=== PATIENT | male | born 1985 | race Caucasian/White ===

== ENCOUNTER 2020-06-08 12:28 | Emergency (ER) | payer SELFPAY ==
[2020-06-08 12:29] VITALS: BP 136/91; PULSE 78; RESP 18; TEMP 34.9; O2SAT 97; BMI 30.8
[2020-06-08 15:31] VITALS: BP 116/94; PULSE 72; RESP 16; O2SAT 95
--- NOTE | 2020-06-08 15:45 | CT_ITS ---
STUDY: CT ABDOMEN AND PELVIS WITHOUT CONTRAST REASON FOR EXAM: Male, 35 years old. Kidney Stone/pain RADIATION DOSAGE (If Supplied By Facility): CTDIvol = ( 15.94 ) mGy, DLP = ( 870.84 ) mGycm TECHNIQUE: Transaxial images were obtained from the dome of the diaphragm to the symphysis pubis without oral contrast, and without intravenous contrast. Sagittal and coronal images were reconstructed. Individualized dose optimization techniques were used for this CT. COMPARISON: None. FINDINGS: The visualized lung bases are unremarkable. The visualized portions of the heart are within normal limits. Normal liver. Multiple small to moderate gallstones in the nondistended gallbladder with no wall thickening or pericholecystic fluid. Normal spleen. Normal pancreas. Normal bilateral adrenal glands. Mild hydronephrosis of the right kidney secondary to a 4.8 mm right ureteral stone at the level of the iliac vessel crossing. The ureter thereafter is nondistended with no other ureteral stones. No other nonobstructing stones of the right kidney. Normal left kidney. Normal visualized stomach. Normal small intestine. Normal colon. The appendix is visualized and appears normal. Normal abdominal aorta. Normal inferior vena cava. Normal retroperitoneum. Normal urinary bladder. Bilateral small fatty inguinal hernias. Normal osseous structures. CT/Abdomen/Pelvis without Cont IMPRESSION: Mild hydronephrosis of the right kidney secondary to a 4.8 mm right ureteral stone at the level of the iliac vessel crossing. Uncomplicated cholelithiasis. Bilateral small fatty inguinal hernias. Electronically Signed: Milagros Wadsworth MD at 16:39 EDT , Service support ,
[2020-06-08] MEDS: Ketorolac 30 MG/ML Syringe IV (15:57)
[2020-06-08] MEDS: Ondansetron 4 MG/2 ML Vial IV (15:57)
[2020-06-08] MEDS: 0.9% Normal Saline 1,000 ML 250 ML IV (15:58)
[2020-06-08 16:00] LABS: Absolute Lymphocyte Count 1.18 X10^3/uL (0.83-4.51); Absolute Neutrophil Count 7.7 X10^3/uL (2.0-7.7); Basophil# 0.03 X10^3/uL; Basophil% 0.3 % (0-1); Eosinophil# 0.06 X10^3/uL; Eosinophils% 0.6 % (0-5); Hematocrit 47.4 % (40-54); Hemoglobin 15.5 g/dL (13.0-16.5); Lymphocyte # 1.18 X10^3/ul (0.83-4.51); Lymphocyte % 12.5 % (19-41); Mean Corp Hgb Conc 32.7 g/dL (32-36); Mean Corpuscular Hgb 29.1 pg (27.0-32.0); Mean Corpuscular Volume 89.1 fL (80-94); Mean Platelet Vol. 10.4 fl (6.2-12.0); Monocyte# 0.43 X10^3/uL; Monocyte% 4.6 % (0-10); NRBC Flagged by Analyzer 0 % (0-5); Neutrophil # 7.69 X10^3/uL (2.7-7.7); Neutrophil % 81.8 % (47-70); Platelet Count 230 K/mm3 (150-450); RBC Distribution Width CV 11.9 % (11.6-14.6); RBC Distribution Width SD 38.5 fl (35.1-43.9); Red Blood Count 5.32 M/mm3 (4.6-6.2); White Blood Count 9.4 K/mm3 (4.4-11.0)
--- NOTE | 2020-06-08 16:02 | EDS_ITS ---
HPI History of Present Illness Chief Complaint: Flank Pain Onset/Context/Timing Onset: Today Context: Sudden Onset Timing: Continuous Current Severity: Moderate Maximum Severity: Severe Narrative Narrative: The patient is a 35-year-old male with medical history significant for prior kidney stone who presents to the emergency department for right flank pain into his right lower quadrant. He states it started about 10 AM this morning. He states it is not fully gone away. He states he will get worse in waves. He said 2 episodes of emesis. He has had kidney stone in the past but is never required lithotripsy. He denies any fevers or chills. Prior similar symptoms: Yes Recent Illness/Hospitalization: No PFSH PFSH no medical history Home Medications ondansetron 4 mg PO Q8H PRN PRN #10 tab 06/08/20 [Rx Last Taken Unknown] oxycodone-acetaminophen 1 tab PO Q6H PRN PRN 3 Days #12 tablet 06/08/20 [Rx Last Taken Unknown] tamsulosin 0.4 mg PO DAILY #7 capsule 06/08/20 [Rx Last Taken Unknown] Allergy/AdvReac Type Severity Reaction Status Date / Time No Known Allergies Allergy Verified 06/08/20 12:31 no significant family history no surgical history Social History Smoking Status: Never smoker ROS ROS ED Constitutional Constitutional ED: Denies chills or fever(s) Eyes Eyes: Denies blurry vision or change in vision ENT ENT ED: Denies ear pain or sore throat Cardiovascular Cardiovascular: Denies chest pain or palpitations Respiratory/Chest Respiratory/Chest: Denies cough, dyspnea or dyspnea on exertion Gastrointestinal Gastrointestinal: Reports abdominal pain, nausea and vomiting Genitourinary Genitourinary ED: Denies dysuria or urinary frequency Musculoskeletal Musculoskeletal: Denies arthralgias or myalgias Integumentary Denies rash Neurologic Neurologic: Denies headache(s) or paresthesias Psychiatric Psychiatric: Denies anxiety or depression Endocrine Endocrinology: Denies polydipsia or polyuria Allergic/Immunologic Allergic/Immunologic ED: Denies urticaria EXAM Physical Exam Const Vital Signs: 06/08/20 12:29 06/08/20 15:31 06/08/20 15:32 Temperature 94.9 F L Temperature Source Temporal Pulse Rate 78 72 Respiratory Rate 18 16 Respiratory Effort Normal Respiratory Pattern Normal Blood Pressure 136/91 H 116/94 H Blood Pressure Mean 106 101 Pulse Ox 97 95 Oxygen Delivery Method Room Air Positive well nourished and well developed General Appearance ED: well developed HEENT Reports normocephalic, head/scalp atraumatic and moist mucous membranes Eyes PERRL and EOMs intact bilaterally Neck no lymphadenopathy and supple General: Negative for tenderness Chest Wall inspection of chest normal Resp normal respiratory effort and clear to auscultation bilaterally Cardio regular rate, regular rhythm and no murmurs GI normal to inspection, nondistended, normoactive bowel sounds Palpation: Negative for tender, guarding or rebound tenderness present Back/Spine no CVA tenderness Cervical Spine: Negative for cervical spine tenderness Thoracic Spine / Upper Back: Negative for thoracic spinal tenderness Extremity normal to inspection General Extremety ED: Negative for tenderness Neuro oriented x3 and CN's II-XII intact bilaterally Neuro Narrative: No focal deficits appreciated. Sensorium / Orientation: alert Psych mental status grossly normal Skin no rashes or lesions noted, no wounds and skin turgor normal MDM MDM Lab Data Labs: Laboratory Results - last 24 hr 06/08/20 06/08/20 06/08/20 15:25 15:45 16:45 WBC 9.4 RBC 5.32 Hgb 15.5 Hct 47.4 MCV 89.1 MCH 29.1 MCHC 32.7 RDW Std Deviation 38.5 RDW Coeff of Marguerite 11.9 Plt Count 230 MPV 10.4 Immature Gran % (Auto) 0.200 Neut % (Auto) 81.8 H Lymph % (Auto) 12.5 L [place] % (Auto) 4.6 Eos % (Auto) 0.6 Baso % (Auto) 0.3 Absolute Neuts (auto) 7.7 Absolute Lymphs (auto) 1.18 Nucleated RBC % 0 Sodium 140 Potassium 4.6 Chloride 109 H Carbon Dioxide 28.0 Anion Gap 3 L BUN 17 Creatinine 0.91 Estim Creat Clear Calc 116.99 Est GFR (MDRD) Af Amer 122 Est GFR (MDRD) Non-Af 101 BUN/Creatinine Ratio 18.7 Glucose 103 Calcium 8.9 Urine Color Yellow Urine Clarity Sl. Cloudy Urine pH 5.0 Ur Specific [place] 1.025 U Specif Grav (Refrac) Urine Protein 30 H Urine Glucose (UA) Normal Urine Ketones 5 H Urine Occult Blood 250 H Urine Nitrite Negative Urine Bilirubin Negative Urine Urobilinogen Normal Ur Leukocyte Esterase 25 H Urine RBC Urine WBC Ur Squamous Epith Cells Ur Transition Epith Cell Ur Renal Epithelial Cell Calcium Oxalate Crystal Uric Acid Crystals Triple Phos Crystals Other Crystals Amorphous Sediment Urine Bacteria Hyaline Casts Fine Granular Casts Coarse Granular Casts Waxy Casts RBC Casts WBC Casts Urine Mucus Urine Trichomonas Urine Yeast 06/08/20 16:45 WBC RBC Hgb Hct MCV MCH MCHC RDW Std Deviation RDW Coeff of Marguerite Plt Count MPV Immature Gran % (Auto) Neut % (Auto) Lymph % (Auto) [place] % (Auto) Eos % (Auto) Baso % (Auto) Absolute Neuts (auto) Absolute Lymphs (auto) Nucleated RBC % Sodium Potassium Chloride Carbon Dioxide Anion Gap BUN Creatinine Estim Creat Clear Calc Est GFR (MDRD) Af Amer Est GFR (MDRD) Non-Af BUN/Creatinine Ratio Glucose Calcium Urine Color Cancelled Urine Clarity Cancelled Urine pH Cancelled Ur Specific [place] Cancelled U Specif Grav (Refrac) Cancelled Urine Protein Cancelled Urine Glucose (UA) Cancelled Urine Ketones Cancelled Urine Occult Blood Cancelled Urine Nitrite Cancelled Urine Bilirubin Cancelled Urine Urobilinogen Cancelled Ur Leukocyte Esterase Cancelled Urine RBC Cancelled Urine WBC Cancelled Ur Squamous Epith Cells Cancelled Ur Transition Epith Cell Cancelled Ur Renal Epithelial Cell Cancelled Calcium Oxalate Crystal Cancelled Uric Acid Crystals Cancelled Triple Phos Crystals Cancelled Other Crystals Cancelled Amorphous Sediment Cancelled Urine Bacteria Cancelled Hyaline Casts Cancelled Fine Granular Casts Cancelled Coarse Granular Casts Cancelled Waxy Casts Cancelled RBC Casts Cancelled WBC Casts Cancelled Urine Mucus Cancelled Urine Trichomonas Cancelled Urine Yeast Cancelled Radiography Diagnostic Testing: Radiology Impression Abdomen/Pelvis CT 06/08/20 15:45 IMPRESSION: Mild hydronephrosis of the right kidney secondary to a 4.8 mm right ureteral stone at the level of the iliac vessel crossing. Uncomplicated cholelithiasis. Bilateral small fatty inguinal hernias. Electronically Signed: Milagros Wadsworth MD at 16:39 EDT , Service support , Treatment and Re-Evaluation Comments:: Patient presents with right-sided flank pain. He does have history of kidney stone. Patient was given Toradol and Zofran with some improvement. He was given morphine with resolution. His CT does demonstrate a 4.8 mm stone with mild hydronephrosis. His urine does not show evidence of infection. Now that his pain is controlled, I do feel it is safe for outpatient therapy. I will prescribe him a short course of analgesics, antiemetics, and Flomax. He will be given outpatient urology follow-up. Discharge Plan Triage Chief Complaint: Flank Pain ED Provider: Kobe Lowry Dx/Rx/DC Orders Instructions: ED Kidney Stone w/ Colic Prescriptions: New oxycodone-acetaminophen [oxycodone-acetaminophen] 1 TABLET tablet 1 tab PO Q6H PRN PRN (Reason: Pain) 3 Days Qty: 12 RF: 0 tamsulosin [tamsulosin] 0.4 MG capsule 0.4 mg PO DAILY Qty: 7 RF: 0 ondansetron 4 mg tablet,disintegrating 4 mg PO Q8H PRN PRN (Reason: Nausea) Qty: 10 RF: 0 Primary Care Provider: Care Physician,No Primary Referrals: Jordin Hagen MD [STAFF PHYSICIAN] - 2 Days Kobe Lowry MD [Emergency Provider] - Care Physician,No Primary [Primary Care Provider] -
[2020-06-08 16:53] LABS: Anion Gap 3 (5-15); BUN 17 mg/dL (7-18); BUN/Creat Ratio 18.7 RATIO (10-20); Calcium,Total 8.9 mg/dL (8.5-10.1); Chloride 109 mmol/L (98-107); Creatinine, Serum 0.91 mg/dL (0.70-1.30); EST Glomerular Filtration Rate 101 mL/min (>60); Est Glom Filt Rate - Afr Amer 122 mL/min (>60); Estimated Creatinine Clearance 116.99 ml/min; Glucose 103 mg/dL (74-106); Potassium 4.6 mmol/L (3.5-5.1); Sodium Level 140 mmol/L (136-145)
[2020-06-08 16:54] LABS: Bacteria 0 SEEN /hpf (None Seen); Squamous Epithelial Cells - UA 0 SEEN /hpf (0-5)
[2020-06-08 17:04] LABS: Color, Urine Yellow (Yellow); Glucose, Dipstick Normal (Normal); Ketone-Dipstick 5 mg/dl (Negative); Leukocyte Esterase-Dipstick 25 /ul (Negative); Nitrite-Dipstick Negative (Negative); Occult Blood-Urine 250 /ul (Negative); Protein-Dipstick 30 mg/dl (Negative); Specific Gravity, Urine 1.025 (1.002-1.030); Urine Bilirubin Dipstick Negative (Negative); Urine Clarity Sl. Cloudy (Clear); Urine Urobilinogen Normal (Normal)
[2020-06-08 17:14] LABS: Red Blood Cells-Urine 25-50 SEEN /hpf (0-5)
[2020-06-08 17:15] LABS: White Blood Cells 0-5 SEEN /hpf (0-5); Yeast-Urine RARE /hpf (None Seen)
[2020-06-08 17:16] LABS: Mucous, Urine 2+ /hpf (<or=2+)
== END 2020-06-08 18:41 | disposition home or self-care (01) ==
PROVIDERS: Emergency Provider Emergency Medicine
DX: N13.2 Hydronephrosis with renal and ureteral calculous obstruction (principal); Z87.442 Personal history of urinary calculi; K80.20 Calculus of gallbladder without cholecystitis without obstruction; K40.20 Bilateral inguinal hernia, without obstruction or gangrene, not specified as recurrent
CPT/HCPCS: 74176; 80048; 81001; 85025; 99283; J7030; A4216; J2405

== ENCOUNTER 2021-06-23 10:33 | Emergency (ER) | payer BC, SELFPAY ==
[2021-06-23 10:34] VITALS: BP 142/89; PULSE 102; RESP 14; TEMP 37.7; O2SAT 92; BMI 31.3
--- NOTE | 2021-06-23 10:52 | RAD_ITS ---
STUDY: X-RAY CHEST REASON FOR EXAM: Male, 36 years old. cough TECHNIQUE: Single AP view of the chest COMPARISON: None. FINDINGS: The lungs are clear and expanded. There is no demonstrated pleural abnormality. Normal size heart. Normal mediastinum and ana lilia. Normal visualized pulmonary arteries. Normal visualized aortic arch and descending thoracic aorta. Normal visualized thoracic spine. Normal visualized ribs, clavicles, and shoulders. There is no demonstrated abnormality of the visualized soft tissue structures of the upper abdomen. RAD/Chest 1 View (Portable) IMPRESSION: Normal x-ray examination of the chest. Electronically Signed: Yrn Garcia MD at 11:43 EDT ,
--- NOTE | 2021-06-23 10:53 | EX.ED.DYSGE1 ---
HPI History of Present Illness Chief Complaint: General Illness Detail of Chief Complaint: Headache, body aches, cough Informant: patient Narrative Narrative: Patient presents to the emergency department with multiple complaints. Patient states he developed a headache initially 2 days ago. Patient also has a cough that at times is bringing up some phlegm. Patient states he is coughing so much that his throat has become sore. He complains of diffuse body aches. Has had nausea but no vomiting. He denies diarrhea. Patient states he has been drinking water but urinating less than usual. He has had the COVID-vaccine that was about a year ago but no booster. Patient denies exposures to COVID. He is not had the flu vaccine. Patient otherwise has no medical history. Prior similar symptoms: No PFSH PFSH Home Medications oseltamivir [Tamiflu] 75 mg PO BID 5 Days #10 cap 06/23/21 [Rx Last Taken Unknown] Allergy/AdvReac Type Severity Reaction Status Date / Time No Known Allergies Allergy Verified 06/23/21 10:34 Social History Smoking Status: Never smoker ROS ROS ED Constitutional Constitutional ED: Reports systems reviewed and no addt'l complaints, except as documented; Denies body ache(s), change in weight or chills Eyes Eyes: Denies acute decrease in peripheral vision, change in vision, double vision or loss of vision ENT ENT ED: Reports none and sore throat; Denies ear pain, lip swelling, loss taste/smell, neck pain or otalgia Cardiovascular Cardiovascular: Reports none; Denies abdominal pain, chest pain with activity, leg edema, lightheadedness, palpitations, rapid heart rate or syncope Respiratory/Chest Respiratory/Chest: Reports none, cough and sputum; Denies change in mental status, dry cough, dyspnea, hemoptysis, shortness of breath at rest or shortness of breath with exertion Gastrointestinal Gastrointestinal: Reports none and nausea; Denies abdominal pain, change in stool character, diarrhea, hematemesis, hematochezia, melena, rectal bleeding or vomiting Genitourinary Genitourinary ED: Reports none; Denies abdominal discomfort, anuria, dysuria, genital pain or polyuria Musculoskeletal Musculoskeletal: Reports none, back pain and myalgias; Denies arthralgias, difficulty walking, extremity pain or muscle weakness Integumentary Reports none; Denies abscess or rash Neurologic Neurologic: Reports none; Denies abnormal gait, confusion, focal weakness, frequent falls, headache(s), loss of vision, numbness, paresthesias, radicular pain, vertigo or weakness Psychiatric Psychiatric: Reports systems reviewed and no addt'l complaints, except as documented and none; Denies behavioral changes, confusion, difficulty concentrating, hallucinations, suicidal ideation, tactile hallucinations or visual hallucinations Endocrine Endocrinology: Denies none, cold intolerance, excessive sweating, fatigue or heat intolerance Hematologic/Lymphatic Hematologic/Lymphatic: Reports none; Denies anemia, easy bleeding or easy bruising Allergic/Immunologic Allergic/Immunologic ED: Denies as per HPI, none, lip swelling, mouth swelling, throat swelling, tongue swelling or hives EXAM Physical Exam Const Vital Signs: 06/23/21 10:34 06/23/21 11:12 Temperature 99.8 F H Temperature Source Temporal Pulse Rate 102 H Respiratory Rate 14 Respiratory Effort Normal Non-Labored Respiratory Pattern Normal Blood Pressure 142/89 H Blood Pressure Mean 106 Pulse Ox 92 Oxygen Delivery Method Room Air Positive well nourished and well developed General Appearance ED: well developed and NAD HEENT Reports TM's clear and moist mucous membranes normocephalic and atraumatic; Negative for trauma or tenderness Tympanic Membrane ED: Yes TM's clear Eyes PERRL and EOMs intact bilaterally General Eye ED: Negative for pale conjunctiva or scleral icterus Neck no lymphadenopathy, supple and no JVD General: Negative for tenderness Chest Wall inspection of chest normal and palpation of chest normal Chest: Negative for tenderness Resp normal respiratory effort and clear to auscultation bilaterally Effort and Inspection: Negative for respiratory distress or pain with movement Auscultation: Negative for rhonchi, wheezes or diminished lung sounds Cardio regular rate, regular rhythm, S1 normal heart sound, S2 normal heart sound and no murmurs Peripheral Pulses: pulses 2+ throughout GI normal to inspection, nondistended, normoactive bowel sounds, soft to palpation, non-tender, non-distended and no masses Back/Spine no CVA tenderness and no thoracic nor lumbar tenderness Extremity normal to inspection General Extremety ED: Negative for edema General Extremity: Negative for edema Neuro oriented x3, CN's II-XII intact bilaterally, no sensory deficits noted and gait normal Sensorium / Orientation: awake, alert, oriented to person, oriented to place and oriented to time Motor Exam: strength 5/5 throughout and strength abnormal Psych mental status grossly normal Skin no rashes or lesions noted and no wounds MDM MDM MDM Narrative Medical decision making narrative: IV line established on arrival. Patient was given a liter normal saline fluid bolus. Patient tested positive for COVID-19 as well as influenza A. Elevated D-dimer therefore CTA was obtained which was negative for PE or infiltrates. Discussed treatment options with patient he would like to proceed with Tamiflu. I do not feel any further treatment indicated for his COVID infection. He did ambulate in the department his O2 remained above 97% on room air. Patient advised to return if increasing shortness of breath or condition should worsen anyway. Lab Data Attestation: I reviewed the patient's lab results. Labs: Laboratory Results - last 24 hr 06/23/21 06/23/21 06/23/21 11:00 11:00 11:00 WBC 7.5 RBC 4.76 Hgb 14.3 Hct 43.4 MCV 91.2 MCH 30.0 MCHC 32.9 RDW Std Deviation 39.9 RDW Coeff of Marguerite 11.9 Plt Count 179 MPV 10.0 Immature Gran % (Auto) 0.300 Neut % (Auto) 78.6 H Lymph % (Auto) 7.6 L [place] % (Auto) 12.3 H Eos % (Auto) 0.8 Baso % (Auto) 0.4 Absolute Neuts (auto) 5.9 Absolute Lymphs (auto) 0.57 L Nucleated RBC % 0 D-Dimer Quant (PE/DVT) 0.60 H* Sodium 140 Potassium 3.6 Chloride 109 H Carbon Dioxide 25.0 Anion Gap 6 BUN 15 Creatinine 1.07 Estim Creat Clear Calc 98.55 Est GFR (MDRD) Af Amer 101 Est GFR (MDRD) Non-Af 83 BUN/Creatinine Ratio 14.0 Glucose 142 H Calcium 8.3 L Radiography Chest X-Ray - ED: 1 View Diagnostic Testing: Clinical Impression(s) from Imaging Studies Chest X-Ray 06/23/21 10:52 IMPRESSION: Normal x-ray examination of the chest. Electronically Signed: Yrn Garcia MD at 11:43 EDT Reading Location ID and State: [address] [place] [address] Tel , Service support , Chest CTA 06/23/21 11:29 IMPRESSION: Normal CTA chest examination, without a demonstrated pulmonary embolism or arterial dissection. Electronically Signed: Ra Marley MD at 13:01 EDT , 1 view chest x-ray obtained interpreted by myself no acute disease process. Radiology in agreement. Discharge Plan Triage Chief Complaint: General Illness ED Provider: Taras Domingo Dx/Rx/DC Orders Clinical Impression: Influenza A, COVID-19 Instructions: ED Influenza (Adult), Caring for Someone Who Has COVID-19 Prescriptions: New oseltamivir [Tamiflu] 75 mg capsule 75 mg PO BID 5 Days Qty: 10 RF: 0 Primary Care Provider: Care Physician,No Primary Referrals: Jose Felix MD [STAFF PHYSICIAN] - 5-7 Days Care Physician,No Primary [Primary Care Provider] - Disposition Disposition: Home, Self Care
[2021-06-23] MEDS: 0.9% Normal Saline 1,000 ML 1000 ML IV (11:06)
[2021-06-23 11:12] LABS: Absolute Lymphocyte Count 0.57 X10^3/uL (0.83-4.51); Absolute Neutrophil Count 5.9 X10^3/uL (2.0-7.7); Basophil# 0.03 X10^3/uL; Basophil% 0.4 % (0-1); Eosinophil# 0.06 X10^3/uL; Eosinophils% 0.8 % (0-5); Hematocrit 43.4 % (40-54); Hemoglobin 14.3 g/dL (13.0-16.5); Lymphocyte # 0.57 X10^3/ul (0.83-4.51); Lymphocyte % 7.6 % (19-41); Mean Corp Hgb Conc 32.9 g/dL (32-36); Mean Corpuscular Volume 91.2 fL (80-94); Monocyte# 0.92 X10^3/uL; Monocyte% 12.3 % (0-10); NRBC Flagged by Analyzer 0 % (0-5); Neutrophil # 5.91 X10^3/uL (2.7-7.7); Neutrophil % 78.6 % (47-70); POSITIVE DIFFERENTIAL YES; Platelet Count 179 K/mm3 (150-450); RBC Distribution Width CV 11.9 % (11.6-14.6); RBC Distribution Width SD 39.9 fl (35.1-43.9); Red Blood Count 4.76 M/mm3 (4.6-6.2); White Blood Count 7.5 K/mm3 (4.4-11.0)
[2021-06-23 11:13] LABS: Differential Indicated SCAN CRITERIA MET
[2021-06-23 11:25] LABS: Anion Gap 6 (5-15); BUN 15 mg/dL (7-18); Calcium,Total 8.3 mg/dL (8.5-10.1); Chloride 109 mmol/L (98-107); Creatinine, Serum 1.07 mg/dL (0.70-1.30); EST Glomerular Filtration Rate 83 mL/min (>60); Est Glom Filt Rate - Afr Amer 101 mL/min (>60); Estimated Creatinine Clearance 98.55 ml/min; Glucose 142 mg/dL (74-106); Potassium 3.6 mmol/L (3.5-5.1); Sodium Level 140 mmol/L (136-145)
--- NOTE | 2021-06-23 11:29 | CT_ITS ---
STUDY: CTA CHEST REASON FOR EXAM: Male, 36 years old. dyspnea, elevated d-dimer RADIATION DOSAGE (If Supplied By Facility): CTDIvol = ( 12.26 ) mGy, DLP = ( 455.57 ) mGycm TECHNIQUE: The examination was performed with the intravenous administration of IV 100mL [id number]-370. Post-processing of the angiographic images was performed, with multiplanar reformation and 3D reconstruction. Individualized dose optimization techniques were used for this CT. COMPARISON: Chest x-ray earlier today FINDINGS: Normal enhancement of the main pulmonary artery and right and left pulmonary arteries. Normal enhancement of the bilateral peripheral pulmonary arteries. There is no demonstrated pulmonary embolism. Normal thoracic aorta and visualized great vessels. There is no demonstrated aortic dissection. Normal heart and pericardium. Normal mediastinum. Normal hilar regions. Normal visualized trachea and bronchi. The lungs are well expanded. Normal pulmonary parenchyma. Normal pleura. Normal chest wall structures. Normal osseous structures. Layering calcified gallstones in the neck of the gallbladder. CT/CTA Chest W/WO Contrast IMPRESSION: Normal CTA chest examination, without a demonstrated pulmonary embolism or arterial dissection. Electronically Signed: Ra Marley MD at 13:01 EDT ,
[2021-06-23 12:36] VITALS: O2SAT 97
[2021-06-23 13:09] VITALS: RESP 18
[2021-06-23] MEDS: Oseltamivir Phosphate 75 MG Capsule PO (13:20)
== END 2021-06-23 13:41 | disposition home or self-care (01) ==
PROVIDERS: Emergency Provider Emergency Medicine; Visit Provider Emergency Medicine
DX: U07.1 COVID-19 (principal); J10.1 Influenza due to other identified influenza virus with other respiratory manifestations
CPT/HCPCS: 71045; 71275; 80048; 85025; 85379; 87428; 96360; 99284; J7030; Q9967; A4216

== ENCOUNTER → 2021-07-06 | Outpatient (CLI) | payer BC, SELFPAY ==
[2021-07-06 15:38] LABS: Anion Gap 6 (5-15); BUN 17 mg/dL (7-18); BUN/Creat Ratio 18.6 RATIO (10-20); Calcium,Total 8.8 mg/dL (8.5-10.1); Chloride 108 mmol/L (98-107); Cholesterol 147 mg/dL (200); Creatinine, Serum 0.91 mg/dL (0.70-1.30); EST Glomerular Filtration Rate 100 mL/min (>60); Est Glom Filt Rate - Afr Amer 121 mL/min (>60); Glucose 125 mg/dL (74-106); High Density Lipoprotein 35 mg/dL; Potassium 4.1 mmol/L (3.5-5.1); Sodium Level 141 mmol/L (136-145); Thyroid Stim Hormone (TSH) 1.44 uIU/mL (0.358-3.74); Triglycerides 62 mg/dL; Very Low Density Lipoprotein 12 mg/dL (5-40)
[2021-07-06 15:39] LABS: Vitamin D,25 Hydroxy 21.3 ng/mL
[2021-07-10 16:17] LABS: Hemoglobin A1c 5.9 % (3.8-5.6)
== END | disposition home or self-care (01) ==
LOC: MTLAB 12:54
PROVIDERS: PCP Family Medicine; Referring Provider Family Medicine; Visit Provider Family Medicine
DX: Z00.00 Encounter for general adult medical examination without abnormal findings (principal)
CPT/HCPCS: 36415; 80048; 80061; 82306; 83036; 84403; 84443

== ENCOUNTER → 2021-07-23 | Outpatient (CLI) | payer BC, SELFPAY | END | disposition home or self-care (01) | PROVIDERS: PCP Family Medicine; Referring Provider Family Medicine; Visit Provider Family Medicine | DX: Z00.00 Encounter for general adult medical examination without abnormal findings (principal) | CPT/HCPCS: 36415; 84403 ==

== ENCOUNTER 2023-07-19 15:14 | Emergency (ER) | payer BC, SELFPAY ==
[2023-07-19 15:15] VITALS: BP 137/93; PULSE 91; PULSE 93; RESP 14; RESP 16; TEMP 36.2; O2SAT 97; O2SAT 98; BMI 31.4
--- NOTE | 2023-07-19 15:31 | EX.ED.DYSGE1 ---
HPI History of Present Illness Chief Complaint: Lower Extremity Injury [facility] Home Medications ?Medication ?Instructions ?Recorded ?Last Taken ?Type oseltamivir 75 mg capsule (Tamiflu) 75 mg PO BID 5 days #10 caps 06/23/21 Unknown Rx Allergy/AdvReac Type Severity Reaction Status Date / Time No Known Allergies Allergy Verified 07/19/23 15:16 Social History Smoking Status: Never smoker EXAM Physical Exam Const Vital Signs: 07/19/23 15:15 07/19/23 15:15 Temperature 97.1 F L Temperature Source Temporal Pulse Rate 91 93 Respiratory Rate 16 14 Blood Pressure 137/93 H 137/93 H Blood Pressure Mean 107 107 Pulse Ox 97 98 Oxygen Delivery Method Room Air Room Air MDM MDM MDM Narrative Medical decision making narrative: HISTORY OF PRESENT ILLNESS: 38-year-old male presents with atraumatic left foot pain. No known injury. Notes this began yesterday. Patient denies active cancer, being bedridden for greater than 3 days, denies unilateral leg swelling, denies any varicose veins, denies any calf tenderness, denies tenderness along deep venous system. Denies major surgery within 12 weeks, recent paralysis, previous DVT. REVIEW OF SYSTEMS: Pertinent positives: Left foot pain Pertinent negatives: Left leg swelling, discoloration, loss of movement or sensation, PHYSICAL EXAM: Nursing triage notes reviewed, Vital signs reviewed Constitutional: please see mdm Lungs: Clear to auscultation, No wheezing or rales. No increased work of breathing, no conversational dyspnea, no accessory muscle use, no nasal flaring. No respiratory distress noted Heart: Regular rate and rhythm, No murmurs, No rubs and No gallops, 2+ distal pulses (radial, femoral, posterior tibial) in all extremities Extremities: No edema, no deformity, TTP over lateral midfoot. Neuro: Intact sensation L1-S1 dermatomal distributions. Intact 5/5 strength in hip flexion (T12-L3). Knee extension (L2-L4). Ankle dorsiflexion (L4-L5). Ankle plantar flexion (S1). Great toe extension (L5). 2+ patellar and Achilles DTRs. Skin: No rash or lesions noted, no crepitus bullae or signs of erythema MEDICAL DECISION MAKING: Chief Complaint: Left foot pain External records reviewed: Imaging reviewed: Recent advanced imaging of the involved extremity Factors affecting care: none Social determinants of health: none History obtained from others: none Consults: none MDM Narrative: Patient was hemodynamically stable, afebrile and nontoxic-appearing. Exam without signs of arterial occlusion, DVT, obvious deformities. I considered the following differential diagnosis: Bony injury (fracture dislocation), sprain, inflammatory condition not otherwise specified ALL IMAGES (IF OBTAINED) HAVE BEEN PERSONALLY REVIEWED AND INTERPRETED BY MYSELF. X-ray of the left foot (read and reviewed by myself) shows no evidence of bony fracture dislocation The synthesis of the patient's history, physical exam, imaging studies suggest likely inflammatory condition of the left foot. No evidence of bony fracture dislocation. No physical exam evidence of arterial occlusion, DVT. No infectious signs or symptoms to suggest cellulitis or necrotizing fasciitis. Patient is given instructions to take Tylenol and ibuprofen and to follow-up with his primary care physician for ongoing conservative therapy and possibly MRI if symptoms continue. The patient and/or family, caregivers express understanding. The patient and/or family, caregivers agrees with the plan. Shared decision making: I will have a discussion with the patient and or visitors regarding risk/benefits of further testing or admission. They will be made aware of of the risk/benefits inherent in this decision they will be given the opportunity to voice understanding. Total critical care time today provided was at least 0 minutes. This excludes separately billable procedures. Critical care time (if documented) is secondary to the patient having high probability of clinically significant/life threatening deterioration in the patient's condition which required my urgent intervention. Impression: 1. Acute left foot pain 2. Left foot contusion Dispo: Discharge home This note was generated with [employer] dictation software. It may contain incorrect words, spelling, and punctuation that were not noted in review of the chart prior to signing. Radiography Diagnostic Testing: Clinical Impression(s) from Imaging Studies Foot X-Ray 07/19/23 15:40 IMPRESSION: No acute findings in the left foot. Electronically Signed: Bipin Whaley MD at 16:07 EDT , Discharge Plan Triage Chief Complaint: Lower Extremity Injury ED Provider: Rodrigo Burch Dx/Rx/DC Orders Instructions: ED Foot Contusion, ED RICE Prescriptions: No Action oseltamivir [Tamiflu] 75 mg capsule 75 mg PO BID 5 Days Qty: 10 0RF Primary Care Provider: Jose Felix Referrals: Jose Felix MD [Primary Care Provider] - Activity Restrictions/Additional Instructions: Thank you for trusting us with your care today! Please take Tylenol (2 pills, 650 mg), ibuprofen (2 pills, 400 mg) every 6 hours as needed for pain and fever control. Please ice the affected area regularly for 20 minutes at a time. Please return to the emergency department if your symptoms change or worsen. Please follow with your primary care physician for further outpatient evaluation and management. Print Language: [place]ian Disposition Disposition: Home, Self Care Discharge Date/Time: 07/19/23 16:45
--- NOTE | 2023-07-19 15:40 | RAD_ITS ---
EXAM: XR LEFT FOOT COMPLETE, 3 OR MORE VIEWS CLINICAL INDICATION: pain TECHNIQUE: Frontal, lateral and oblique views of the left foot. COMPARISON: No relevant prior studies available. FINDINGS: BONES/JOINTS: No acute fracture or subluxation. Plantar calcaneal spur noted. SOFT TISSUES: Normal. No soft tissue swelling or gas. No radiopaque foreign body. RAD/Foot min 3 Views IMPRESSION: No acute findings in the left foot. Electronically Signed: Bipin Whaley MD at 16:07 EDT ,
== END 2023-07-19 16:45 | disposition home or self-care (01) ==
PROVIDERS: Emergency Provider Emergency Medicine; PCP Family Medicine; Visit Provider Emergency Medicine
DX: S90.32XA Contusion of left foot, initial encounter (principal); X58.XXXA Exposure to other specified factors, initial encounter
CPT/HCPCS: 73630; 99282